=== PATIENT | male | born 2000 | race African-American/Black ===

== ENCOUNTER 2021-07-19 15:07 | Emergency (ER) | payer OTHER, MEDICAID, SELFPAY ==
[2021-07-19 15:32] VITALS: BP 153/81; PULSE 74; RESP 16; TEMP 37.3; O2SAT 99; BMI 17.6
--- NOTE | 2021-07-19 17:36 | ED_ITS ---
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 He reports that he is up-to-date on his tetanus. He denies any thoughts of foreign bodies or any other symptoms complaints or injuries at this time. Onset (ago): minute(s) (Last night) Extremity Location: left: hand (Index finger distal tip) Place: work Patient tetanus UTD: Yes Context: accidental Associated symptoms: none Related Data Previous Rx's Medication Instructions Recorded cephalexin 500 mg capsule 500 mg PO Q6H 7 Days #28 cap 07/19/21 Allergies Allergy/AdvReac Type Severity Reaction Status Date / Time No Known Allergies Allergy Verified 07/19/21 17:07 Review of Systems Review of Systems: Constitutional : No Fever, No Chills, Cardiovascular : No Chest Pain, No SOB Respiratory : No Dyspnea Gastrointestinal : No abdominal pain Musculoskeletal : No Joint Swelling Skin : positive skin laceration, No Foreign bodies, No rash, No surrounding erythema Neuro : No Weakness, No Numbness/tingling Psych : No SI/HI/thoughts of self injury Yes all other systems are reviewed and are negative COUNT INCLUDES THE [facility] Past Medical History Attestation statement: The following information was validated with the patient. Social History Social History Advance Directives: No Advance Directives Information Provided: No Physical Exam Vital Signs: Vital Signs: Last Vital Signs Temp 99.2 F 07/19/21 15:32 Pulse 74 07/19/21 15:32 Resp 16 07/19/21 15:32 BP 153/81 H 07/19/21 15:32 Pulse Ox 99 07/19/21 15:32 Body Mass Index 17.6 vital signs have been reviewed as normal and appeared to be correct. Blood pressure normal. Heart rate normal. Respiration rate normal. Temperature normal. Oxygen saturation normal. Appearance: Alert. Oriented X3. No acute distress. Head: Normal external exam. Normocephalic. Atraumatic. Eyes: PERRLA. EOMI. Conjunctiva and sclera normal. Eyelids normal. ENT: Pharynx normal. Uvula midline. Moist mucous membranes. Neck: Normal inspection. Neck supple. FROM. CVS: Normal heart rate and rhythm. Respiratory: No respiratory distress. Painless inspiration. Back: Full range of motion noted. No rashes/lesion/induration/fluctuance or signs of infection noted. Skin: Skin warm and dry. Normal skin color. Normal skin turgor. No rashes/lesions/lacerations noted. Extremities: To left hand index finger right under the nail patient has a superficial laceration no foreign bodies or active bleeding or bony tenderness. No nail bed involvement. Extremities exhibit normal range of motion. Extremities nontender. Neuro: Oriented X 3. No motor deficit. No sensory deficit. Reflexes normal. Normal steady gait. No focal neuro deficits noted. Vascular: + radial pulses. Normal cap refill. No cyanosis noted to upper extremity nails MDM - Wound/Laceration Medical Records Attestation: I reviewed the patient's medical records. Discharge Plan Discharge Clinical Impression: Laceration Patient Disposition: Home, Self-Care Instructions: Laceration Without Closure (ED) Prescriptions: New cephalexin 500 mg capsule 500 mg PO Q6H 7 Days Qty: 28 RF: 0 Referrals: Kadi Baorn MD [Primary Care Provider] - 2 days Stand Alone Forms: Work/School Release Print Language: Latvian
== END 2021-07-19 17:57 | disposition home or self-care (01) ==
PROVIDERS: Emergency Provider Emergency Medicine Emergency Medical Services; PCP Family Medicine
DX: S61.211A Laceration without foreign body of left index finger without damage to nail, initial encounter (principal); M79.645 Pain in left finger(s); W26.0XXA Contact with knife, initial encounter; Y93.G3 Activity, cooking and baking; Y92.9 Unspecified place or not applicable; Y99.0 Civilian activity done for income or pay; Z79.899 Other long term (current) drug therapy
CPT/HCPCS: 99284

== ENCOUNTER 2024-09-26 19:59 | Emergency (ER) | payer MEDICAID, SELFPAY ==
[2024-09-26 20:11] VITALS: BP 144/81; PULSE 80; RESP 18; TEMP 36.8; O2SAT 98; BMI 19.4
[2024-09-26 21:20] LABS: Appearance Urine Clear; Color Urine Dark Yellow; Glucose Urine UA Negative (Negative); Leukocyte Esterase Urine Trace (Negative); Nitrite Urine Negative (Negative); Specific Gravity - Urine >= 1.030 (1.005-1.025); UMIC TRIGGER UACC YES; Urine Blood Negative (Negative); Urine Ketones Trace mg/dL (Negative); Urine Protein Trace mg/dL (Neg-Trace)
[2024-09-26 21:24] LABS: Bacteria Urine None Seen (None Seen); Hyaline Casts Urine 0-2 /LPF (0-2); RBC Urine 0-2 /HPF (0-2); Squamous Epithelial Cell Urine 0-2 /HPF (0-2); UACC Culture Trigger YES; WBC Urine 21-50 /HPF (0-5)
--- NOTE | 2024-09-26 22:04 | ED.MALEGU ---
HPI - Male Genitourinary General Chief complaint: Urogenital-Male Stated complaint: ? Std Time Seen by Provider: 09/26/24 20:32 Source: patient Mode of arrival: ambulatory Limitations: no limitations History of Present Illness ED Provider: BOB DUBOIS PA-C HPI Narrative: 24-year-old male with no significant PMHX presents to the ED today requesting STD testing. He states that he has had dysuria and clear discharge from his penis x1.5 weeks. Admits to recent unprotected intercourse with female partner. He is unsure if she has been tested for any sexually transmitted infections. He denies any rash, lesions, testicular pain, hematuria, fever or chills. Related Data Previous Rx's ?Medication ?Instructions ?Recorded cephalexin 500 mg capsule 500 mg PO Q6H 7 days #28 caps 07/19/21 doxycycline monohydrate 100 mg 100 mg PO BID 7 days #14 caps 09/26/24 capsule Allergies Allergy/AdvReac Type Severity Reaction Status Date / Time No Known Allergies Allergy Verified 09/26/24 20:12 Review of Systems Review of Systems: Constitutional: No fever, chills, fatigue, night sweats, weight changes ENT/Mouth: No ear pain, hearing loss, nasal congestion, sinus pain, rhinorrhea, sore throat Eyes: No eye pain, swelling, redness, vision changes, discharge Cardio: No chest pain, palpitations, VERGARA, orthopnea, peripheral edema Pulm: No SOB, cough, sputum, wheezing, dyspnea, hemoptysis GI: No nausea, vomiting, hematemesis, abdominal pain, diarrhea, constipation, hematochezia, melena : No irregular bleeding, frequency, urgency, hesitancy, hematuria, flank pain, urinary flow changes, urinary incontinence or retention, +dysuria, +penile discharge MSK: No back pain, neck pain, joint pain, myalgias Skin: No lesions, rashes Neuro: No weakness, numbness, paresthesias, LOC, dizziness, headache Psych: No anxiety/panic, depression, SI/HI, AH/VH All other systems reviewed and are negative. [facility] Past Medical History Attestation statement: The following information was validated with the patient. Source: old records reviewed and nursing notes reviewed Social History Social History Advance Directives: No Advance Directives Information Provided: Yes Physical Exam Vital Signs: Vital Signs: Last Vital Signs Temp 98.2 F 09/26/24 20:11 Pulse 80 09/26/24 20:11 Resp 18 09/26/24 20:11 BP 144/81 H 09/26/24 20:11 Pulse Ox 98 09/26/24 20:11 O2 Del Method Room Air 09/26/24 20:11 BMI result Body Mass Index 19.4 Hypertensive, afebrile General: Well appearing, in no acute distress. Skin: Warm, dry, intact. No rashes or lesions. Head: Normocephalic, atraumatic. EENT: Hearing is intact b/l. Conjunctiva clear. PERRLA. EOM intact. Moist mucous membranes.? Neck: Supple without LAD Cardiac: Chest wall symmetric. RRR Lungs: Normal respiratory effort without accessory muscle use. CTA bilaterally Abdomen: Soft, non-tender, non-distended. No rebound tenderness or guarding. Positive BS x4. No inguinal lymphadenopathy. : exam deferred per patient Back: No midline spinous or paraspinal tenderness. No step off deformity. Ext: Upper and lower extremities atraumatic, without tenderness, deformity, swelling or erythema. Full ROM throughout. Neuro: AOx3. Normal speech Course Course Course Narrative: 2208 -- Urine negative for infection. CT/NG pending. I discussed current options with patient. I offered prophylactic treatment for gonorrhea and chlamydia. I also informed him that if he tests positive for either gonorrhea or chlamydia we will call him in a few days and he can be treated at that time instead. He would like to be prophylactically treated however would only like to be treated for chlamydia. Not gonorrhea. Doxycycline ordered. Will send course to pharmacy for treatment. I advised patient that we will contact him with any positive results. Medical Decision Making Medical Decision Making MDM Narrative: 24-year-old male with no significant PMHX presents to the ED today requesting STD testing. He states that he has had dysuria and clear discharge from his penis x1.5 weeks. Patient is hypertensive, afebrile. He is nontoxic appearing in no acute distress. On exam, abdomen is soft, nondistended, nontender to palpation, no rebound tenderness or guarding. No inguinal lymphadenopathy. exam deferred per patient. Differential diagnosis includes urinary tract infection, gonorrhea, chlamydia Plan for UA, CT/NG testing and re-evaluation. Differential Diagnosis Differential Diagnoses: The differential diagnosis associated with the presentation includes As above Admission/Observation Not indicated Lab Data MDM Lab Attestation statement: I reviewed the patient's lab results. As above Labs: Lab Results 09/26/24 Range/Units 21:08 Urine Color Dark Yellow Urine Appearance Clear Urine pH 6.0 (5.0-9.0) Ur Specific [place] >= 1.030 H (1.005-1.025) Urine Protein Trace (Neg-Trace) mg/dL Urine Glucose (UA) Negative (Negative) mg/dL Urine Ketones Trace (Negative) mg/dL Urine Blood Negative (Negative) Urine Nitrite Negative (Negative) Ur Leukocyte Esterase Trace H (Negative) Urine RBC 0-2 (0-2) /HPF Urine WBC 21-50 H (0-5) /HPF Ur Squamous Epith Cells 0-2 (0-2) /HPF Urine Bacteria None Seen (None Seen) Hyaline Casts 0-2 (0-2) /LPF Prescription Management I considered prescription management with: Antibiotic (Doxycycline) Social Determinants Patient?s care significantly limited by Social Determinants of Health including: Other Social Determinant of Health Critical Care Time Critical Care Time Critical Care Time: No Discharge Plan Discharge Clinical Impression: Concern about sexually transmitted infection in male without diagnosis, Dysuria Patient Disposition: Home, Self-Care Instructions: Sexually Transmitted Diseases (ED), Male Condom Use (ED), Dysuria (ED) Additional Instructions: You were evaluated in the ED today due to concerns for painful urination and penile discharge. We will call you with any abnormal findings based on your urine collected today. You have opted to be treated for chlamydia today. You were given a dose of doxycycline in the ED today. I have sent the rest of the course of doxycycline to your pharmacy for you to take as prescribed. You are declining prophylactic treatment against gonorrhea. Until you are reevaluated by a health care provider, please practice safe sex as discussed. Please also have a conversation with your sexual partners. You should abstain from sex until you have tested negative for any STDs. I also advise you to obtain full panel STD testing to test for other STDs including HIV, Hepatitis B&C, and syphilis which can be done by your PCP or at a local clinic. [facility] can help facilitate these tests. They often have walk-in hours. If new or worsening symptoms occur, please return to the ED. In the case of any emergency, call 911. [facility]: [address] [place] [address] [address], [place], [place] [id number] [phone] Prescriptions: New doxycycline monohydrate 100 mg capsule 100 mg PO BID 7 Days Qty: 14 0RF No Action cephalexin 500 mg capsule 500 mg PO Q6H 7 Days Qty: 28 0RF Referrals: Kadi Baron MD [Primary Care Provider] - Print Language: Ukrainian
[2024-09-26 22:36] VITALS: BP 110/57; PULSE 62; RESP 18; TEMP 37.1; O2SAT 97
[2024-09-26 22:44] VITALS: BP 110/57; PULSE 62; RESP 18; TEMP 37.1; O2SAT 97
[2024-09-26] MEDS: Doxycycline Monohydrate 100 MG CAPSULE PO (22:48)
[2024-09-27 02:28] LABS: CT PCR NOT DETECTED (Not Detect.); NG PCR NOT DETECTED (Not Detect.)
== END 2024-09-26 22:50 | disposition home or self-care (01) ==
PROVIDERS: Emergency Provider Emergency Medicine; PCP Family Medicine
DX: R30.0 Dysuria (principal); R36.9 Urethral discharge, unspecified; Z20.2 Contact with and (suspected) exposure to infections with a predominantly sexual mode of transmission
CPT/HCPCS: 81001; 87086; 87491; 87591; 99283